=== PATIENT | male | born 2000 | race Caucasian/White ===

== ENCOUNTER 2021-04-28 10:22 | Emergency (ER) | payer OTHER ==
[~2021-04-28] VITALS: Ht 175.3 cm; Wt 74.3 kg
[2021-04-28] MEDS ORDERED: NS 1,000 ML IV ONE (12:15)
[2021-04-28 12:36] LABS: BASO % 0.3 % (0.0-1.0); EOS % 0.5 % (0.0-3.0); HEMATOCRIT 48.2 % (42.0-52.0); HEMOGLOBIN 15.3 g/dl (13.5-17.5); LYMPH # 1.7 10^3/uL (1.5-5.0); LYMPH % 21.8 % (24.0-44.0); MEAN CORPUSCULAR HEMOGLOBIN 28.5 pg (27.0-33.0); MEAN CORPUSCULAR HGB CONC 31.7 g/dl (32.0-36.5); MEAN CORPUSCULAR VOLUME 89.8 fl (80.0-96.0); MONO # 0.7 10^3/uL (0.0-0.8); MONO % 9.8 % (2.0-8.0); NEUTROPHILS # 5.1 10^3/uL (1.5-8.5); NEUTROPHILS % 67.3 % (36.0-66.0); PLATELET COUNT, AUTOMATED 239 10^3/uL (150-450); RED BLOOD COUNT 5.37 10^6/uL (4.30-6.10); WHITE BLOOD COUNT 7.6 10^3/uL (4.0-10.0)
[2021-04-28 13:07] LABS: ALBUMIN 4.4 GM/DL (3.2-5.2); ALT/SGPT 27 U/L (12-78); BILIRUBIN,DIRECT 0.2 MG/DL (0.0-0.2); BILIRUBIN,TOTAL 0.6 MG/DL (0.2-1.0); BLOOD UREA NITROGEN 18 MG/DL (7-18); CARBON DIOXIDE LEVEL 27 MEQ/L (21-32); CHLORIDE LEVEL 108 MEQ/L (98-107); CPK CREATINE PHOSPHOKINASE 142 U/L (39-308); CREATININE FOR GFR 1.02 MG/DL (0.70-1.30); GLUCOSE, FASTING 88 MG/DL (70-100); POTASSIUM SERUM 4.3 MEQ/L (3.5-5.1); SODIUM LEVEL 140 MEQ/L (136-145); TOTAL PROTEIN 8.1 GM/DL (6.4-8.2)
[2021-04-28] MEDS ORDERED: ACETAMINOPHEN 500 MG TAB PO ONE (13:40)
--- NOTE | 2021-04-28 14:03 | REP ---
INDICATION: hematuria, suprapubic pain. COMPARISON: None. TECHNIQUE: Standard helical technique without intravenous or oral bowel preparatory contrast. Stone protocol utilized secondary to hematuria and suprapubic pain. FINDINGS: The lung bases are clear. Limited evaluation of the solid intra-abdominal organs and gallbladder show no gross abnormalities. There is no evidence of nephroureterolithiasis, hydronephrosis, or hydroureter. There are no urinary bladder calcifications. There is no free fluid or free air. Limited evaluation of the bowel loops and the mesenteries show no gross abnormalities. Limited evaluation of the abdominal aorta and para-aortic regions show no gross abnormalities. The pancreas and adrenal glands are unremarkable although seen in a limited fashion. The osseous structures are within normal limits. IMPRESSION: CT findings are within normal limits as described above. <Electronically signed by Zan Ivory > 04/28/21 1400
[2021-04-28 14:11] LABS: GC DNA AMPLIFICATION NEGATIVE (NEGATIVE)
[2021-04-28 15:49] VITALS: BP 140/78
== END 2021-04-28 15:50 | disposition home or self-care (01) ==
LOC: M ED 10:22
DX: R10.9 Unspecified abdominal pain (principal); R30.0 Dysuria; R31.0 Gross hematuria

== ENCOUNTER → 2021-05-18 | Outpatient (REF) | payer OTHER ==
[2021-05-18 13:34] LABS: APPEARANCE, URINE CLEAR (CLEAR); BACTERIA, URINE AUTO NEGATIVE (NEGATIVE); BILIRUBIN, URINE AUTO NEGATIVE (NEGATIVE); BLOOD, URINE BLOOD NEGATIVE (NEGATIVE); COLOR, URINE YELLOW (YELLOW); GLUCOSE, URINE (UA) AUTO NEGATIVE (NEGATIVE); KETONE, URINE AUTO NEGATIVE (NEGATIVE); LEUKOCYTE ESTERASE, URINE AUTO NEGATIVE (NEGATIVE); MUCUS, URINE SMALL (NEGATIVE); NITRITE, URINE AUTO NEGATIVE (NEGATIVE); PROTEIN, URINE AUTO NEGATIVE (NEGATIVE); RBC, URINE AUTO 0 /HPF (0-3); SPECIFIC GRAVITY URINE AUTO 1.025 (1.002-1.035); SQUAMOUS EPITHELIAL CELL UR AU 0 /HPF (0-6); UROBILINOGEN, URINE AUTO 0.2 mg/dL (0.0-2.0); WBC, URINE AUTO 0 /HPF (0-3)
== END ==
LOC: M SMT 12:57
PROVIDERS: ATTEND Urology
DX: R31.0 Gross hematuria (principal)
CPT/HCPCS: 81001; 88108; G0463

== ENCOUNTER → 2021-05-24 | Outpatient (CLI) | payer OTHER ==
[~2021-05-24] MED LIST: ISOVUE-370 76% 100ML VIAL As Ordered ONE
--- NOTE | 2021-05-25 08:37 | REP ---
INDICATION: GROSS HEMATURIA. COMPARISON: Comparison is made with a noncontrast CT study done of the abdomen and pelvis on April 28, 2021. TECHNIQUE: Helical scanning was acquired and 4 mm axial images are re-formatted. Coronal and sagittal MPR images were generated and reviewed. The contrast enhancement dose is 100 mL of intravenous Isovue 370. Dual phase postcontrast imaging is included. FINDINGS: Preliminary digital conveyor man radiograph shows an unremarkable bowel gas pattern. The lung bases are clear. The liver and the spleen are normal in size and homogeneous in texture on postcontrast CT images. Normal adrenal glands are seen. No pancreatic abnormality is observed. No retroperitoneal mass or adenopathy is seen. Normal appendix is noted in the right lower quadrant. Small and large bowel loops are unremarkable. No bladder mass lesion is seen. Prostate and seminal vesicles are unremarkable. The kidneys enhance symmetrically and are morphologically intact on dual phase post-contrast sequences. Delayed acquisition shows normal caliber ureters. No filling defect is seen in the upper tract collecting system or in the urinary bladder. No abdominal wall defect or bony destructive lesion is seen. IMPRESSION: Negative CT study of the abdomen and pelvis with dual phase post-contrast imaging. <Electronically signed by Breezy Barahona > 05/25/21 [id number]
== END ==
LOC: M RAD 17:17
PROVIDERS: ATTEND Urology
DX: R31.0 Gross hematuria (principal)
CPT/HCPCS: 74177; Q9967

== ENCOUNTER → 2021-07-07 | Outpatient (REF) | payer OTHER ==
[2021-07-07 14:07] LABS: APPEARANCE, URINE CLEAR (CLEAR); BACTERIA, URINE AUTO NEGATIVE (NEGATIVE); BILIRUBIN, URINE AUTO NEGATIVE (NEGATIVE); BLOOD, URINE BLOOD NEGATIVE (NEGATIVE); COLOR, URINE COLORLESS (YELLOW); GLUCOSE, URINE (UA) AUTO NEGATIVE (NEGATIVE); KETONE, URINE AUTO NEGATIVE (NEGATIVE); LEUKOCYTE ESTERASE, URINE AUTO NEGATIVE (NEGATIVE); MUCUS, URINE SMALL (NEGATIVE); NITRITE, URINE AUTO NEGATIVE (NEGATIVE); PROTEIN, URINE AUTO NEGATIVE (NEGATIVE); RBC, URINE AUTO 0 /HPF (0-3); SPECIFIC GRAVITY URINE AUTO 1.006 (1.002-1.035); SQUAMOUS EPITHELIAL CELL UR AU 0 /HPF (0-6); UROBILINOGEN, URINE AUTO 0.2 mg/dL (0.0-2.0); WBC, URINE AUTO 0 /HPF (0-3)
== END ==
LOC: M SMT 13:26
PROVIDERS: ATTEND Urology
DX: R31.0 Gross hematuria (principal)

== ENCOUNTER → 2024-03-13 | Outpatient (REF) | payer OTHER | LOC: M LAB REF 13:05 | PROVIDERS: ATTEND Ophthalmology | DX: H02.821 Cysts of right upper eyelid (principal); H02.822 Cysts of right lower eyelid ==